=== PATIENT | female | born 1990 | race African-American/Black ===

== ENCOUNTER 2021-01-12 00:42 | Emergency (ER) | payer MEDICARE, OTHER ==
[~2021-01-12 00:42] MED LIST: AMBIEN5 MG PO; ASMANEX HFA13 G1 INH; ATIVAN0.5 MG PO; CLARITIN10 MG PO; DICLOFENAC SODI75 MG PO; FLONASE ALLER15.8 ML; FOLIC ACID1 MG PO; IBUPROFEN800 MG PO; LAMICTAL100 MG PO; PROAIR HFA8.5 GM INH; PROPRANOLOL HCL60 MG PO; SINGULAIR10 MG PO; VITAMIN D1000 UNI1 PO; ZANTAC150 MG PO
[2021-01-12 01:38] LABS: BASOPHIL 0.5 % (0-2); EOSINOPHIL 0.4 % (0-5); HCT 41.6 % (37.0-47.0); HGB 13.7 g/dl (12.5-16.0); LYMPHOCYTE 44.3 % (15-48); MCH 29.1 pg (25.0-31.0); MCHC 32.9 g/dL (32.0-36.0); MCV 88.3 fL (78.0-100.0); MONOCYTE 7.5 % (0-12); NEUTROPHIL 46.9 % (41-80); NRBC 0; PLT 449 K/uL (150-400); RBC 4.71 M/uL (4.20-5.40); RDW 12.4 % (11.5-14.0); WBC 7.9 K/uL (4.0-10.5)
[2021-01-12 01:58] LABS: ALBUMIN 3.4 g/dL (3.4-5.0); ALKALINE PHOSHATASE 86 U/L (46-116); ALT 19 U/L (14-59); AST 19 U/L (15-37); BILIRUBIN - TOTAL 0.2 mg/dL (0.2-1.0); BUN 10 mg/dL (7-18); BUN/CREAT RATIO (CALC) 11.2 RATIO; CHLORIDE 101 mmol/L (98-107); CO2 (BICARBONATE) 25 mmol/L (21-32); CREATININE 0.89 mg/dL (0.51-0.95); GLOBULIN (CALCULATION) 4.5 g/dL; GLUCOSE 114 mg/dL (74-106); POTASSIUM 3.9 mmol/L (3.5-5.1); TOTAL PROTEIN 7.9 g/dL (6.4-8.2)
[2021-01-12 02:00] LABS: ACETAMINOPHEN (TYLENOL) < 2.0 ug/mL (10.0-30.0)
[2021-01-12 02:18] LABS: DILANTIN (PHENYTOIN) 0.8 ug/mL (10.0-20.0)
[2021-01-12 02:20] LABS: DEPAKENE/VALPROIC ACID < 0.3 ug/mL (50.0-100.0)
[2021-01-12 02:38] LABS: BILIRUBIN NEGATIVE (NEGATIVE); BLOOD TRACE-INTACT Ery/uL (NEGATIVE); CLARITY CLEAR (CLEAR); COLOR YELLOW (YELLOW); GLUCOSE (U) NORMAL (NORMAL); LEUKOCYTES NEGATIVE Leu/uL (NEGATIVE); NITRITE NEGATIVE (NEGATIVE); PROTEIN NEGATIVE (NEGATIVE); SPECIFIC GRAVITY <=1.005 (1.001-1.030); UROBILINOGEN 0.2 mg/dL (0.2-1.0)
[2021-01-12 02:42] LABS: AMPHETAMINES NEGATIVE (NEGATIVE); BARBITURATES NEGATIVE (NEGATIVE); ECSTASY (MDMA) NEGATIVE (NEGATIVE); MARIJUANA (THC) NEGATIVE (NEGATIVE); METHADONE NEGATIVE (NEGATIVE); OPIATES NEGATIVE (NEGATIVE); OXYCODONE NEGATIVE (NEGATIVE)
[2021-01-12 02:51] LABS: SQUAMOUS EPITHELIAL CELLS RARE
== END 2021-01-12 04:45 | disposition home or self-care (01) ==
LOC: FER 00:42
PROVIDERS: Emergency Medicine Emergency Medical Services
DX: R56.9 Unspecified convulsions (principal); Z88.8 Allergy status to other drugs, medicaments and biological substances
CPT/HCPCS: 36415; 70450; 71045; 80053; 80164; 80185; 80305; 81001; 85025; 87088; 93005; 96365; 96375; G0480; J1953; J2060